=== PATIENT | female | born 1950 | race Caucasian/White ===

== ENCOUNTER → 2017-07-14 | Outpatient (CLI) | payer OTHER ==
--- NOTE | 2017-07-15 11:52 | Diagnostic Imaging Report ---
Bilateral screening mammogram 2D views with tomosynthesis. The current study was also evaluated with a Computer Aided Detection (CAD) system. INDICATION: Screening. No current complaints stated on the questionnaire. COMPARISON: 06/01/2016. FINDINGS: The breasts are composed of scattered fibroglandular densities. Scattered benign-appearing calcifications are seen. Allowing for technique and positional differences, no suspicious change is seen. IMPRESSION: No significant change. ACR BI-RADS Category 2: Benign findings. Result letter will be mailed to the patient. Note: At least 10% of breast cancer is not imaged by mammography. Dictated by: Dictated on workstation # [id number]
== END ==
LOC: RAD 11:03
PROVIDERS: ATTEND Internal Medicine
DX: Z12.31 Encounter for screening mammogram for malignant neoplasm of breast (principal)
CPT/HCPCS: 77067

== ENCOUNTER → 2018-08-29 | Outpatient (CLI) | payer MEDICARE ==
--- NOTE | 2018-08-30 19:17 | Diagnostic Imaging Report ---
Digital mammogram, bilateral screening with 3D tomosynthesis and CAD. COMPARISONS: 07/14/2017, 06/01/2016, and 04/15/2015. There are no current complaints. FINDINGS: The fibroglandular tissue in both breasts is heterogeneously dense. This does limit the sensitivity of this exam. Overall, there does not appear to have been any significant change when compared to the prior study. No primary or secondary sign of malignancy is noted. IMPRESSION: There is no radiographic evidence for malignancy. ACR BI-RADS Category 1: Negative. Result letter will be mailed to the patient. Note: At least 10% of breast cancer is not imaged by mammography. Dictated by: Dictated on workstation # [id number]
== END ==
LOC: RAD 10:07
PROVIDERS: ATTEND Internal Medicine
DX: Z12.31 Encounter for screening mammogram for malignant neoplasm of breast (principal)
CPT/HCPCS: 77067

== ENCOUNTER 2019-10-03 14:52 | Outpatient (RCR) | payer MEDICARE | END 2019-11-09 | disposition home or self-care (01) | PROVIDERS: ATTEND Internal Medicine | DX: M99.02 Segmental and somatic dysfunction of thoracic region (principal); I10 Essential (primary) hypertension ==

== ENCOUNTER → 2019-10-12 | Outpatient (CLI) | payer MEDICARE ==
--- NOTE | 2019-10-12 09:43 | Diagnostic Imaging Report ---
INDICATION: Routine screening. Comparison is made with prior mammogram from 08/29/2018 and 07/14/2017. 2-D and 3-D bilateral screening mammography was performed with CAD. Scattered fibroglandular densities are identified bilaterally. Scattered benign parenchymal and vascular calcifications are noted bilaterally. No mass or malignant appearing microcalcifications are identified. Axillae are unremarkable. IMPRESSION: BI-RADS Category 2 No mammographic features suspicious for malignancy are identified. ACR BI-RADS Category 2: Benign findings. Result letter will be mailed to the patient. Note: At least 10% of breast cancer is not imaged by mammography. Dictated by: Dictated on workstation # [id number]
== END ==
LOC: RAD 07:23
PROVIDERS: ATTEND Internal Medicine
DX: Z12.31 Encounter for screening mammogram for malignant neoplasm of breast (principal)
CPT/HCPCS: 77067

== ENCOUNTER → 2020-12-31 | Outpatient (CLI) | payer MEDICARE ==
--- NOTE | 2020-12-31 16:11 | Diagnostic Imaging Report ---
PROCEDURE: US Renal Bilateral. TECHNIQUE: Multiple real-time grayscale images were obtained over the kidneys in various projections bilaterally. INDICATION: History of renal cyst. COMPARISON: No previous studies currently available for comparison. FINDINGS: The right kidney measures 10.8 x 3.9 x 4.2 cm. There is a simple appearing cyst in the lower pole measuring 1.6 x 1.3 cm. There are a few scattered small nonobstructing calculi noted within the right kidney. The left kidney measures 10.5 x 4.5 x 4.8 cm. There is a 7 mm simple appearing cyst in the lower pole of the left kidney. The bladder was visualized and showed smooth bladder wall. Bilateral ureteral jets were demonstrated. IMPRESSION: Simple appearing bilateral renal cysts. Dictated by: Dictated on workstation # [id number]
== END ==
LOC: RAD 14:01
PROVIDERS: ATTEND Internal Medicine
DX: N28.1 Cyst of kidney, acquired (principal)
CPT/HCPCS: 76770

== ENCOUNTER → 2020-12-31 | Outpatient (RCR) | payer MEDICARE | END | disposition home or self-care (01) | PROVIDERS: ATTEND Internal Medicine | DX: M99.02 Segmental and somatic dysfunction of thoracic region (principal) ==

== ENCOUNTER 2021-02-14 09:23 | Outpatient (RCR) | payer MEDICARE | END 2021-04-03 | disposition home or self-care (01) | PROVIDERS: ATTEND Internal Medicine | DX: M99.02 Segmental and somatic dysfunction of thoracic region (principal); I10 Essential (primary) hypertension ==

== ENCOUNTER → 2021-03-17 | Outpatient (CLI) | payer MEDICARE ==
--- NOTE | 2021-03-17 10:26 | Diagnostic Imaging Report ---
INDICATION: Routine screening. Comparison is made with prior mammogram 10/12/2019 and 08/29/2018. 2-D and 3-D bilateral screening mammography was performed with CAD. Scattered fibroglandular densities are identified bilaterally. There are benign parenchymal and vascular calcifications bilaterally. No mass or malignant-appearing microcalcifications are seen. Axillae are unremarkable. IMPRESSION: BI-RADS Category 2 No mammographic features suspicious for malignancy are identified. ACR BI-RADS Category 2: Benign findings. Result letter will be mailed to the patient. Note: At least 10% of breast cancer is not imaged by mammography. Dictated by: Dictated on workstation # [id number]
== END ==
LOC: RAD 07:55
PROVIDERS: ATTEND Internal Medicine
DX: Z12.31 Encounter for screening mammogram for malignant neoplasm of breast (principal)
CPT/HCPCS: 77063; 77067

== ENCOUNTER → 2022-03-24 | Outpatient (CLI) | payer MEDICARE ==
--- NOTE | 2022-03-24 12:54 | Diagnostic Imaging Report ---
INDICATION: Routine screening. COMPARISON: 03/17/2021 and 10/12/2019. TECHNIQUE: 2D and 3D bilateral screening mammography was performed with CAD. FINDINGS: Both breasts are heterogeneously dense, limiting the sensitivity of mammography. The parenchymal pattern is stable. No mass or malignant-appearing microcalcifications are seen. The axillae are unremarkable. IMPRESSION: No mammographic features suspicious for malignancy are identified. ACR BI-RADS Category 1: Negative. Result letter will be mailed to the patient. Note: At least 10% of breast cancer is not imaged by mammography. Dictated by: Dictated on workstation # [id number]
== END ==
LOC: RAD 08:22
PROVIDERS: ATTEND Internal Medicine
DX: Z12.31 Encounter for screening mammogram for malignant neoplasm of breast (principal)
CPT/HCPCS: 77063; 77067

== ENCOUNTER → 2022-06-03 | Outpatient (CLI) | payer MEDICARE ==
--- NOTE | 2022-06-03 14:49 | Diagnostic Imaging Report ---
PROCEDURE: US Renal Bilateral. TECHNIQUE: Multiple real-time grayscale images were obtained over the kidneys in various projections bilaterally. INDICATION: Renal cysts. COMPARISON: Exam is compared with study 12/31/2020. FINDINGS: The right kidney measures 10.8 cm. Cysts at its mid and lower poles are present; the largest on the right measured 1.4 cm in long axis, previously 1.6 cm. The largest on the left in the lower pole measures 1 cm, not appreciably changed. No vascularized or solid renal mass. No hydronephrosis. Cortical thickness and echotexture are otherwise normal with the right kidney measuring 10.8 cm and the left kidney 10.5 cm. Urinary bladder appeared normal with patency of the bilateral ureteral jets confirmed. IMPRESSION: Small simple bilateral renal cysts, stable on the left and slightly decreased on the right. No adverse development or suspicious renal lesion. Dictated by: Dictated on workstation # [id number]
== END ==
LOC: RAD 10:45
PROVIDERS: ATTEND Internal Medicine
DX: N28.1 Cyst of kidney, acquired (principal)
CPT/HCPCS: 76770

== ENCOUNTER → 2022-07-01 | Outpatient (RCR) | payer MEDICARE | END | disposition home or self-care (01) | PROVIDERS: ATTEND Orthopaedic Surgery | DX: M75.02 Adhesive capsulitis of left shoulder (principal); I10 Essential (primary) hypertension ==

== ENCOUNTER 2022-07-30 14:01 | Outpatient (RCR) | payer MEDICARE | END 2022-08-01 | disposition home or self-care (01) | PROVIDERS: ATTEND Orthopaedic Surgery | DX: M75.02 Adhesive capsulitis of left shoulder (principal); I10 Essential (primary) hypertension ==

== ENCOUNTER 2022-08-12 10:51 | Outpatient (RCR) | payer MEDICARE | END 2022-08-12 14:30 | disposition home or self-care (01) | PROVIDERS: ATTEND Orthopaedic Surgery | DX: M75.02 Adhesive capsulitis of left shoulder (principal); Z73.6 Limitation of activities due to disability ==

== ENCOUNTER 2022-10-26 10:31 | Outpatient (RCR) | payer MEDICARE | END 2022-10-30 | disposition home or self-care (01) | PROVIDERS: ATTEND Internal Medicine | DX: S46.012A Strain of muscle(s) and tendon(s) of the rotator cuff of left shoulder, initial encounter (principal); X58.XXXA Exposure to other specified factors, initial encounter ==

== ENCOUNTER 2022-11-11 11:32 | Outpatient (RCR) | payer MEDICARE | END 2022-11-29 | disposition home or self-care (01) | PROVIDERS: ATTEND Internal Medicine | DX: S46.012A Strain of muscle(s) and tendon(s) of the rotator cuff of left shoulder, initial encounter (principal); X58.XXXA Exposure to other specified factors, initial encounter ==

== ENCOUNTER 2022-12-23 14:33 | Outpatient (RCR) | payer MEDICARE | END 2022-12-30 | disposition home or self-care (01) | PROVIDERS: ATTEND Internal Medicine | DX: S46.012A Strain of muscle(s) and tendon(s) of the rotator cuff of left shoulder, initial encounter (principal); I10 Essential (primary) hypertension; X58.XXXA Exposure to other specified factors, initial encounter ==

== ENCOUNTER 2023-01-18 12:27 | Outpatient (RCR) | payer MEDICARE | END 2023-01-29 | disposition home or self-care (01) | PROVIDERS: ATTEND Internal Medicine | DX: S46.012A Strain of muscle(s) and tendon(s) of the rotator cuff of left shoulder, initial encounter (principal); I10 Essential (primary) hypertension; X58.XXXA Exposure to other specified factors, initial encounter ==

== ENCOUNTER 2023-02-01 15:08 | Outpatient (RCR) | payer MEDICARE | END 2023-02-01 17:00 | disposition home or self-care (01) | PROVIDERS: ATTEND Internal Medicine | DX: S46.012D Strain of muscle(s) and tendon(s) of the rotator cuff of left shoulder, subsequent encounter (principal); X58.XXXD Exposure to other specified factors, subsequent encounter ==

== ENCOUNTER → 2023-05-10 | Outpatient (CLI) | payer MEDICARE ==
--- NOTE | 2023-05-11 11:31 | Diagnostic Imaging Report ---
INDICATION: Screening. EXAMINATION: Bilateral digital 2D and 3D mammographic screening with CAD. COMPARISON: March 2022, March 2021, and October 2019. BREAST DENSITY: 3. FINDINGS: No breast mass, spiculated lesion, architectural distortion, suspicious calcifications, or changes to suggest malignancy. IMPRESSION: Negative. ACR BI-RADS Category 1: Negative. Result letter will be mailed to the patient. Note: At least 10% of breast cancer is not imaged by mammography. Dictated by: Dictated on workstation # [id number]
== END ==
LOC: RAD 09:01
PROVIDERS: ATTEND Internal Medicine
DX: Z12.31 Encounter for screening mammogram for malignant neoplasm of breast (principal)
CPT/HCPCS: 77063; 77067